=== PATIENT | male | born 1970 | race Caucasian/White ===

== ENCOUNTER 2018-12-30 00:08 | Emergency (ER) | payer SELFPAY ==
[2018-12-30] MEDS ORDERED: Diphtheria,Pertussis(Acell),Tetanus Vaccine 0.5 ML SDV IM ONE (00:48)
--- NOTE | 2018-12-30 00:54 | EDM.PDOC ---
ED HPI GENERAL MEDICAL PROBLEM - General Chief Complaint: Head Injury Stated Complaint: [facility] Time Seen by Provider: 12/30/18 00:30 Source of Information: Reports: Patient History Limitations: Reports: Intoxication (Clinically intoxicated, but is cooperative and able to answer questions adequately) - History of Present Illness INITIAL COMMENTS - FREE TEXT/NARRATIVE: The patient is brought to the ED by EMS after falling down at a bar, injuring his face. EMS placed a cervical collar, but the patient removed it in the ED. The patient acknowledges that he is intoxicated, and states "I drink too much". He has a swollen upper lip, and abrasions to his nose, upper lip, and right cheek. His hands are bloody, but no injury to his hands is seen. The patient states that he drinks approximately half of a 5th of tequila per day , plus a six pack of beer. He states that he drinks every day. He states that he has not previously undergone inpatient treatment, although he has had outpatient treatment in the past, most recently around 1999. He denies having medical problems from his drinking, such as cirrhosis or history of DTs. He states that he had 3 DUIs about 20 years ago, but none since. He denies having any social problems, such as divorce or work, related to his alcoholism. The patient states that he is not interested in any alcohol treatment at this time. The patient states that he lives in [place], and is here for work. He is currently residing at a hotel. 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 [No Known Home Meds] 12/30/18 [History] Past Medical History Cardiovascular History: Reports: Hypertension Social & Family History - Tobacco Use Smoking Status *Q: Former Smoker Tobacco Use Within Last Twelve Months: Smokeless Tobacco (Chews 1/4 can/day) Years of Tobacco use: 10 Packs/Tins Daily: 1 Month/Year Tobacco Last Used: Quit 2008 - Alcohol Use Alcohol Use History: Yes Days Per Week of Alcohol Use: 7 Number of Drinks Per Day: 15 Total Drinks Per Week: 105 Alcohol Use Frequency: Daily - Recreational Drug Use Recreational Drug Use: Yes Drug Use in Last 12 Months: No Recreational Drug Type: Reports: Cocaine (last snorted around 1999), Marijuana/ Hashish (last smoked around 1999) - Living Situation & Occupation Living situation: Reports: , with Spouse 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 ED EXAM, GENERAL - Physical Exam Exam: See Below Exam Limited By: Intoxication (slurred speech and strong smell of alcohol) General Appearance: Alert, WD/WN, No Apparent Distress Eye Exam: Bilateral Eye: EOMI, Normal Inspection Ears: Normal External Exam, Hearing Grossly Normal Nose: Normal Mucosa, No Blood, Other (Small abrasion to the outer nose) Throat/Mouth: Normal Teeth, Normal Gums, Normal Oropharynx, Normal Voice, No Airway Compromise, Other (Upper lip is swollen, with an outer abrasion that crosses the vermilion border. There is an partially 1.5 cm jagged laceration to the inner upper lip) Head: Normocephalic, Other (Subtle abrasion to the right zygomaticus) Neck: Normal Inspection, Supple, Non-Tender, Full Range of Motion Respiratory/Chest: No Respiratory Distress, Lungs Clear, Normal Breath Sounds, No Accessory Muscle Use Cardiovascular: Normal Peripheral Pulses, Regular Rate, Rhythm, No Edema, No Gallop, No JVD, No Murmur, No Rub Peripheral Pulses: 4+: Radial (L), Radial (R) GI/Abdominal: Normal Bowel Sounds, Soft, Non-Tender, No Organomegaly, No Distention, No Abnormal Bruit, No Mass (Male) Exam: Deferred Rectal (Males) Exam: Deferred Back Exam: Normal Inspection, Full Range of Motion, NT Extremities: Normal Inspection, Normal Range of Motion, No Pedal Edema, Normal Capillary Refill Neurological: Alert, Oriented, CN II-XII Intact, No Motor/Sensory Deficits Psychiatric: Normal Affect Skin Exam: Warm, Dry, Intact, Normal Color, No Rash Course - Vital Signs Last Recorded V/S: Last Vital Signs Temp 35.6 C 12/30/18 00:12 Pulse 87 12/30/18 00:12 Resp 18 12/30/18 00:12 BP 117/85 12/30/18 00:12 Pulse Ox 96 12/30/18 00:12 - Orders/Labs/Meds Orders: Active Orders 24 hr Category Date Time Status Vaccines to be Administered [RC] PER UNIT ROUTINE Care 12/30/18 00:48 Active Meds: Medications Discontinued Medications Generic Name Dose Route Start Last Admin Trade Name Kiarra PRN Reason Stop Dose Admin Diphtheria/Tetanus/Acell Pertussis 0.5 ml 12/30/18 00:48 12/30/18 00:58 Adacel IM 12/30/18 00:49 0.5 ml .ONCE ONE Administration - Re-Assessments/Exams Free Text/Narrative Re-Assessment/Exam: 12/30/18 00:50 The patient is clinically intoxicated. A cervical collar was placed per EMS, however, the patient self-discontinued it here in the ED. On examination, he has no tenderness to his neck, and is moving his head around without apparent difficulty. He has no focal neurologic deficits, other than slurred speech as would be expected with alcohol intoxication. Nevertheless, because of his history of alcoholism and falling down, striking his head, I recommended a CT scan of his head, either with or without a CT of his cervical spine. The patient declined. On examination, the patient has a jagged laceration to the inside of his upper lip, but the laceration is not [id number], only causing upper lip swelling, without an outer laceration. The inner laceration does not require suturing; it will heal well within a few days, although I am recommending that he swish and spit salt water. The patient told the triage nurse that he did not recall when his last tetanus vaccination was, but later stated that he had one not too long ago. Since he is not sure, I have ordered a tetanus vaccination. Other than a few abrasions to the patient's face, no other injuries were found. Since the patient is declining medical evaluation, he may be discharged home. Departure - Departure Time of Disposition: 00:52 Disposition: Home, Self-Care 01 Condition: Good Clinical Impression: Alcohol intoxication, Alcoholism with alcohol dependence, Fall, Laceration of lip without complication, Facial abrasion - Discharge Information *PRESCRIPTION DRUG MONITORING PROGRAM REVIEWED*: Not Applicable *COPY OF PRESCRIPTION DRUG MONITORING REPORT IN PATIENT MAXIME: Not Applicable Instructions: Abrasion Forms: ED Department Discharge Additional Instructions: You were seen in the emergency room after becoming intoxicated at a bar, falling down, injuring your face. On examination, you have a laceration to your inner upper lip, that does not require suturing. Other than abrasions to your face, no other injuries were found. A CT scan of your head and cervical spine were offered, but declined. Going forward, we recommend that you swish and spit salt water, to help keep the laceration clean. We strongly recommend that you seek professional help regarding your alcoholism. We recommend that you follow-up at [facility]: [address] [place] [phone] If any other problems, please do not hesitate to return to the ER. - My Orders Last 24 Hours: My Active Orders 12/30/18 00:48 Vaccines to be Administered [RC] PER UNIT ROUTINE - Assessment/Plan Last 24 Hours: My Active Orders 12/30/18 00:48 Vaccines to be Administered [RC] PER UNIT ROUTINE
== END 2018-12-30 01:15 | disposition home or self-care (01) ==
LOC: JD.ED 00:08
DX: S01.511A Laceration without foreign body of lip, initial encounter (principal); F10.129 Alcohol abuse with intoxication, unspecified; Z23 Encounter for immunization; I10 Essential (primary) hypertension; Z87.891 Personal history of nicotine dependence; W19.XXXA Unspecified fall, initial encounter
CPT/HCPCS: 90471; 90715; 99282; 99283